=== PATIENT | male | born 1970 | race Caucasian/White ===

== ENCOUNTER → 2017-07-03 | Emergency (ER) | payer OTHER ==
[~2017-07-03] VITALS: Ht 177.8 cm; Wt 127.0 kg
[~2017-07-03] MED LIST: ATENOLOL25 MG PO; LISINOPRIL10 MG PO; METHYLPREDNISOLO4 M1 PO; NORCO 5-325 TA1 EACH PO
== END ==
LOC: ED 14:35
DX: S90.32XA Contusion of left foot, initial encounter (principal); S90.415A Abrasion, left lesser toe(s), initial encounter; Z23 Encounter for immunization; I10 Essential (primary) hypertension; Z79.899 Other long term (current) drug therapy; W22.8XXA Striking against or struck by other objects, initial encounter; Y99.0 Civilian activity done for income or pay
CPT/HCPCS: 73630; 90715; 96374; 99283